=== PATIENT | female | born 1985 | race Caucasian/White ===

== ENCOUNTER 2016-06-01 19:28 | Outpatient (CLI) | payer OTHER ==
[2016-06-01 19:59] VITALS: BP 156/91; PULSE 103; RESP 16; TEMP 97.2
== END 2016-06-01 21:56 | disposition home or self-care (01) ==
LOC: FBPOP 19:28
PROVIDERS: ATTEND Obstetrics & Gynecology
DX: Z53.9 Procedure and treatment not carried out, unspecified reason (principal)
CPT/HCPCS: 59025; 99213

== ENCOUNTER 2016-06-01 22:50 | Inpatient (IN) | payer OTHER ==
[~2016-06-01 22:50] MED LIST: BUPIVACAINE (PF) 0.25% 30 ML VIAL ONE; SODIUM CHLORIDE 0.9% 100 ML BAG ONE; fentaNYL (PF) 50 MCG/ML 5 ML AMP ONE
[2016-06-01 23:32] VITALS: BMI 26.2
[2016-06-02] MEDS ORDERED: TERBUTALINE 1 MG/ML VIAL SQ PRN (00:06)
[2016-06-02] MEDS ORDERED: BUTORPHANOL 1 MG/ML 1 ML VIAL IV PRN (00:06)
[2016-06-02] MEDS ORDERED: CARBOPROST TROMETHAMINE 250 MCG/ML 1 ML AMP IM PRN (00:06)
[2016-06-02] MEDS ORDERED: LIDOCAINE 1% (PF) 10 MG/ML (30 ML SDV) SQ PRN (00:06)
[2016-06-02] MEDS ORDERED: OXYTOCIN 10 UNIT/ML 1 ML VIAL IM PRN (00:06)
[2016-06-02] MEDS ORDERED: METHYLERGONOVINE 0.2 MG/ML 1 ML AMP IM PRN (00:06)
[2016-06-02 00:19] LABS: Basophils % (A) 0 %; CH 30.9; CHCM 34.1; Eosinophils # (A) 0.1 k/uL (0-0.7); Eosinophils % (A) 0 %; HCT 41.7 % (34.0-46.0); HDW 2.52; Luc # (Auto) 0.17; Luc % (Auto) 1; Lymphocytes # (A) 1.8 k/uL (1.0-4.8); Lymphocytes % (A) 10 %; MCH 30.4 pg (25.0-35.0); MCHC 33.5 g/dL (31.0-37.0); MCV 90.8 fL (80.0-100.0); Mean Platelet Volume 8.5; Monocytes # (A) 0.6 k/uL (0-1.0); Monocytes % (A) 4 %; Neutrophils # (A) 15.6 k/uL (1.3-7.7); Neutrophils % (A) 85 %; RBC 4.59 m/uL (3.80-5.40); RDW 13.5 % (11.5-15.5); WBC 18.3 k/uL (3.8-10.6); WBC (Perox) 18.45
[2016-06-02] MEDS: LACTATED RINGERS 1,000 ML IV SCH ×2 (00:19→00:41)
--- NOTE | 2016-06-02 05:24 | P.HPOB ---
History of Present Illness H&P Date: 06/02/16 Chief Complaint: 38+ weeks, active labor The patient is a 30-year-old 1 para 0 admitted at 38+ weeks as established by last menstrual period and confirmed by second trimester ultrasound. She is admitted in early active labor with all signs reassuring. Her has been uncomplicated and group B strep status is negative. Obstetrical history 1 para 0 with current statistics listed above. EDC of 06/11/2016 was established by last menstrual period and confirmed by 19 week ultrasound. Laboratory workup demonstrates a blood type of A+ with a negative antibody screen. Rubella status is immune. All other laboratory workup was within normal limits. One hour Glucola was normal and group B strep status is negative. Gynecologic history is unremarkable with no history of any infections to include STDs. Review of Systems Review of systems is confined to history of present illness. Past Medical History Past Medical History: No Reported History History of Any Multi-Drug Resistant Organisms: None Reported Additional Past Surgical History / Comment(s): [place] Teeth Past Anesthesia/Blood Transfusion Reactions: No Reported Reaction Past Psychological History: No Psychological Hx Reported Smoking Status: Never smoker Past Alcohol Use History: None Reported Past Drug Use History: None Reported - Past Family History Father Family Medical History: Hypertension Medications and Allergies Home Medications Medication Instructions Recorded Confirmed Type Fez-Rltf-Kikla Acid 1 cap PO DAILY 06/01/16 06/01/16 History [-U Capsule (formulary)] Allergies Allergy/AdvReac Type Severity Reaction Status Date / Time No Known Allergies Allergy Verified 06/01/16 23:22 Exam - Vital Signs Vital signs: Vital Signs Temp Pulse Resp BP 06/01/16 23:22 97.2 F L 114 H 18 161/92 Intake and Output 06/01/16 06/01/16 06/02/16 14:59 22:59 06:59 Intake Total 1000 Balance 1000 Intake: Intake, IV Titration 1000 Amount Lactated Ringers 1,000 ml 1000 @ 125 mls/hr IV .Q8H VIPIN Rx#:[id number] Other: # Voids 1 Weight 75.75 kg Patient Weight 06/02/16 06:59 Weight 75.75 kg In general, this is a well-developed, well-nourished white female in discomfort as she is in active labor and approaching the second stage. Her heart has a regular rhythm and rate without murmur. Her lungs are clear to auscultation bilaterally in all morales. Her abdomen is gravid, nondistended, has normal active bowel sounds, is soft, nontender, and without any palpable masses aside from the uterine fundus. Her extremities without any cyanosis, clubbing, or edema and are nontender to palpation bilaterally. Digital cervical examination at this time demonstrates her surgery completely dilated with the vertex in presentation at 0 to -1 station. Rupture of membranes of the remaining amniotic membrane in front of the head demonstrates moderately meconium-stained fluid. Results Result Diagrams: 06/02/16 00:08 Abnormal Lab Results - Last 24 Hours (Table) 06/02/16 Range/Units 00:08 WBC 18.3 H (3.8-10.6) k/uL Neutrophils # 15.6 H (1.3-7.7) k/uL Assessment and Plan (1) Active labor at term Status: Acute Plan: The patient will continue to have close maternal and surveillance. Expectant management will be practiced and anticipate normal vaginal delivery in the near future. An epidural catheter has been placed for analgesia. We will have him the nurse first line production supervisor at standby for meconium should it become necessary.
[2016-06-02] MEDS ORDERED: BENZOCAINE/MENTHOL SPRAY 1 GM/SPRAY AEROSOL TOPICAL PRN (06:34)
[2016-06-02] MEDS ORDERED: Acetaminophen-Codeine 300-30mg TAB PO PRN ×2 (06:34)
[2016-06-02] MEDS ORDERED: diphenhydrAMINE 50 MG CAP PO PRN (06:34)
[2016-06-02] MEDS ORDERED: LANOLIN CREAM 5 GM TUBE TOPICAL PRN (06:34)
[2016-06-02] MEDS ORDERED: WITCH HAZEL 1 EACH MED..PAD TOPICAL PRN (06:34)
[2016-06-02] MEDS ORDERED: diphenhydrAMINE 50 MG/ML 1 ML VIAL IVP PRN ×2 (06:34)
[2016-06-02] MEDS ORDERED: ACETAMINOPHEN TAB 325 MG TAB PO PRN (06:34)
[2016-06-02] MEDS ORDERED: HYDROCORTISONE 2.5% RECTAL CREAM 30 GM TUBE RECTAL PRN (06:34)
[2016-06-02] MEDS ORDERED: ZOLPIDEM 5 MG TAB PO PRN (06:34)
[2016-06-02] MEDS ORDERED: SIMETHICONE 80 MG CHEWABLE PO PRN (06:34)
[2016-06-02] MEDS ORDERED: diphenhydrAMINE 25 MG CAP PO PRN (06:34)
--- NOTE | 2016-06-02 06:40 | P.PROBDLV ---
Vaginal Delivery Note - . Vaginal Delivery Note: The patient is a 30-year-old 1 para 0 admitted at 38+ weeks by good dating parameters. She is admitted in early active labor with all signs reassuring. Her has been entirely uncomplicated and group B strep status is negative. On labor and delivery, she made progress through the latent phase of labor and had an epidural catheter placed for analgesia. She then progressed very steadily through the active phase of labor to anterior lip at which time artificial rupture of membranes is carried out demonstrating moderately meconium-stained fluid. She pushed over the course of approximately 50 minutes to a normal spontaneous vaginal delivery of a viable 7 lbs. 9 oz. baby boy with Apgars of 9 at 1 minute and 9 at 5 minutes. Thorough bulb suctioning was done on the perineum. The was immediately vigorous following delivery and the nurse manager erp was dismissed. The placenta delivered spontaneously, intact, and grossly normal though it was bilobar with the cord insertion at the junction of the 2 lobes near the margin of the placenta. The cord itself was grossly normal and 3 vessels in nature. A second -degree midline episiotomy had been cut for delivery and was noted to have not extended though the skin extended to near the anal verge. It was closed in standard fashion using 3-0 chromic catgut without difficulty under local 1% lidocaine block. Estimated blood loss for the case is approximately 350 mL. There were no complications. All sponge, instrument, and needle counts were correct. Both mother and are resting comfortably in recovery.
[2016-06-02] MEDS ORDERED: DIPH,PERTUS(ACELL)TETVAC-LF 0.5 ML VIAL IM ONE (07:03)
[2016-06-02] MEDS: OXYTOCIN 30 UNITS/500 ML NS 30 UNIT in SALINE 1 500ML.BAG IV SCH ×2 (10:59→11:02)
[2016-06-02 12:15] VITALS: RESP 16
[2016-06-02] MEDS: SENNOSIDES-DOCUSATE SODIUM 1 EACH TAB PO SCH ×2 (12:42→20:01)
[2016-06-02] MEDS: IBUPROFEN 600 MG TAB PO PRN ×2 (12:42→20:53)
--- NOTE | 2016-06-03 07:54 | P.DS ---
Providers Date of admission: 06/01/16 23:02 Expected date of discharge: 06/03/16 Attending physician: Tremayne Bell Primary care physician: Padmini Redd [facility] Course: This is a 30-year-old white female 1 para 0 EDC 06/11/2016 at 38-4/7 weeks' gestation. Patient presented to labor and delivery with strong regular uterine contractions, in early labor. was essentially unremarkable, group B strep cultures negative, rubella status immune. Artificial amniorrhexis revealed thick meconium-stained fluid. Please see dictated history and physical for details. Patient went on to deliver a liveborn male infant with scores of 9 and 9 at one and 5 minutes respectively. There was an estimated blood loss recorded of 350 mL's. weighed 3440 g or 7 lbs. 9 oz. There was a small second- degree laceration that was easily repaired. Please see dictated delivery note for details. This morning the patient is doing well. She is voiding, ambulating and passing flatus without difficulty. Vital signs are stable and she is afebrile. Fundus is firm and in the midline, symmetric and 18 week size. circumcision has been performed. Breast-feeding is going well. Patient is being discharged home in very good condition. She will follow-up with me in the office in 6 weeks. I reminded her no intercourse, tampons or douching. She will use gjjf-ibm-ikxizbm ibuprofen products as needed for pain. I've asked her to call with any fevers shakes or chills, foul smelling or copious lochia, with the passage of large blood clots, with any pain not alleviated by frms-huo-ldmbbhn products, or indeed with any concerns. Patient Condition at Discharge: Good Plan - Discharge Summary Discharge Medication List Qqw-Pyqe-Ztgvt Acid [-U Capsule (formulary)] 1 cap PO DAILY 03/19 [History] Follow up Appointment(s)/Referral(s): Padmini Redd MD [Primary Care Provider] - 6 Weeks Discharge Disposition: HOME SELF-CARE
[2016-06-03] MEDS: IBUPROFEN 600 MG TAB PO PRN (08:14)
[2016-06-03] MEDS: SENNOSIDES-DOCUSATE SODIUM 1 EACH TAB PO SCH ×2 (08:15→21:08)
[2016-06-04 09:32] VITALS: TEMP 97.6
[2016-06-04 12:44] VITALS: BP 130/77; PULSE 74
[2016-06-04] MEDS: SENNOSIDES-DOCUSATE SODIUM 1 EACH TAB PO SCH (14:09)
== END 2016-06-04 13:35 | disposition home or self-care (01) | DRG 775 ==
LOC: FBPOP 22:50 → OBSVTOIN 23:02 → 4FBP 23:02
PROVIDERS: ADMIT Obstetrics & Gynecology; ATTEND Obstetrics & Gynecology
PROC: 10E0XZZ Delivery of Products of Conception, External Approach (ICD-10-PCS; principal; 2016-06-02)
PROC: 00HU33Z Insertion of Infusion Device into Spinal Canal, Percutaneous Approach (ICD-10-PCS; 2016-06-02)
PROC: 3E0R3CZ (ICD-10-PCS; 2016-06-02)
PROC: 3E0234Z Introduction of Serum, Toxoid and Vaccine into Muscle, Percutaneous Approach (ICD-10-PCS; 2016-06-02)
DX: O77.0 Labor and delivery complicated by meconium in amniotic fluid (principal); O70.1 Second degree perineal laceration during delivery; Z37.0 Single live birth; Z23 Encounter for immunization; Z3A.38 38 weeks gestation of pregnancy; Z79.899 Other long term (current) drug therapy
CPT/HCPCS: 59025; 85025; 88307; 90471; 90715; 99213

== ENCOUNTER 2022-08-11 04:59 | Outpatient (CLI) | payer OTHER ==
[2022-08-11 06:31] VITALS: BP 132/80; PULSE 88; RESP 16; TEMP 96.9
--- NOTE | 2022-08-11 15:32 | P.MSEPDOC ---
Presenting Problems - Arrival Data Date of Arrival on Unit: 08/11/22 Time of Arrival on Unit: 04:59 Mode of Transport: Ambulatory - Complaint OB-Reason for Admission/Chief Complaint: Possible Onset of Labor Comment: contractions 10 minuts apart Medical History - Information : 3 Para: 2 Term: 2 : 0 Abortions: Spontaneous or Elective: 0 Number of Living Children: 2 - Gestational Age Gestational Age by TERA (wks/days): 40 Weeks and 0 Days Review of Systems - Review of Systems Constitutional: No problems Breast: No problems ENT: No problems Cardiovascular: No problems Respiratory: No problems Gastrointestinal: No problems Genitourinary: No problems Musculoskeletal: No problems Neurological: No problems Skin: No problems Vital Signs - Temperature Temperature: 96.9 F Temperature Source: Oral - Pulse Right Brachial Pulse Rate: 88 Pulse Assessment Method: Automatic Cuff - Respirations Respiratory Rate: 16 Oxygen Delivery Method: Room Air O2 Sat by Pulse Oximetry: 100 - Blood Pressure Right Arm Blood Pressure: 132/80 Blood Pressure Mean: 97 Blood Pressure Source: Automatic Cuff Medical Screen Scoring - Cervical Exam Dilation (cm): 2.5 Effacement (%): 70 Station: -2 Membranes: Intact - Uterine Contractions Frequency From (mins): 7 Frequency To (mins): 11 Duration From (seconds): 50 Duration To (seconds): 60 Intensity: Mild Resting: Soft to palpation - Assessment - Baby A Baseline FHR: 135 Heart Rate - NICHD Category: Category I (Normal) NST: Reactive Physician Notification - Physician Notified Physician Notified Date: 08/11/22 Physician Notified Time: 06:14 Physician: Kaylene Rahman Order Received: Yes (discharge) - Notification Comment Comment: Dr. Rahman called with report on patient. that presents for contractions 7-11 minutes apart. Patients cervix remains unchanged after 1 hour at. 2.5/70/-2. Reactive NST. Pain 1-2/10 appears. comfortable. Patient to be discharged home. Maternal Triage Index - Maternal Triage Index Presenting for scheduled procedure w/no complaint: No - Stat/Priority 1 Stat Priority 1: No - Urgent/Priority 2 Urgent Priority 2: No - Prompt/Priority 3 Prompt Priority 3: No - Non-Urgent/Priority 4 Non-Urgent Priority 4: Yes Criteria Met for Priority 4: 40 0/7 cx Disposition - Disposition OB Disposition: Discharge to home Discharge Date: 08/11/22 Discharge Time: 06:17 I agree with the RN Medical Screening Exam: Yes Case reviewed; plan agreed upon as documented in EMR&OBIX.: Yes Diagnosis: rule out labor
== END 2022-08-11 06:17 | disposition home or self-care (01) ==
LOC: FBPOP 04:59
PROVIDERS: ATTEND Obstetrics & Gynecology
DX: O47.1 False labor at or after 37 completed weeks of gestation (principal); Z3A.40 40 weeks gestation of pregnancy
CPT/HCPCS: 59025; 99213

== ENCOUNTER 2022-08-11 12:49 | Inpatient (IN) | payer OTHER ==
[2022-08-11] MEDS ORDERED: METHYLERGONOVINE 0.2 MG/ML 1 ML AMP IM PRN (14:40)
[2022-08-11] MEDS ORDERED: LIDOCAINE 0.5% (PF) 5 MG/ML (50 ML SDV) SQ PRN (14:40)
[2022-08-11] MEDS ORDERED: OXYTOCIN 10 UNIT/ML 1 ML VIAL IM PRN (14:40)
[2022-08-11] MEDS ORDERED: TRANEXAMIC ACID IN NACL,ISO-OS 1,000 MG in EMPTY BAG 1 BAG IV PRN (14:40)
[2022-08-11] MEDS ORDERED: TERBUTALINE 1 MG/ML VIAL SQ PRN (14:40)
[2022-08-11] MEDS ORDERED: miSOPROStoL 200 MCG TAB PO PRN (14:40)
[2022-08-11] MEDS ORDERED: CARBOPROST TROMETHAMINE 250 MCG/ML 1 ML AMP IM PRN (14:40)
[2022-08-11] MEDS ORDERED: OXYTOCIN 30 UNITS/500 ML NS 30 UNIT in SALINE 1 500ML.BAG IV SCH ×2 (14:45→18:15)
[2022-08-11] MEDS ORDERED: LACTATED RINGERS 1,000 ML IV SCH (14:45)
[2022-08-11 14:49] LABS: Basophils % (A) 0 %; Eosinophils # (A) 0.1 k/uL (0-0.7); Eosinophils % (A) 1 %; HCT 45.3 % (34.0-46.0); HGB 14.7 gm/dL (11.4-16.0); Lymphocytes # (A) 2.9 k/uL (1.0-4.8); Lymphocytes % (A) 20 %; MCH 29.9 pg (25.0-35.0); MCHC 32.4 g/dL (31.0-37.0); MCV 92.3 fL (80.0-100.0); Mean Platelet Volume 10.1; Monocytes # (A) 0.8 k/uL (0-1.0); Monocytes % (A) 6 %; Neutrophils # (A) 10.5 k/uL (1.3-7.7); Neutrophils % (A) 72 %; Platelet Count 268 k/uL (150-450); RDW 13.7 % (11.5-15.5); WBC 14.7 k/uL (3.8-10.6)
[2022-08-11] MEDS ORDERED: fentaNYL (PF) 50 MCG/ML 5 ML AMP ONE (15:00)
[2022-08-11] MEDS ORDERED: SODIUM CHLORIDE 0.9% 100 ML BAG ONE (15:00)
[2022-08-11] MEDS ORDERED: ROPIVACAINE 5 MG/ML 20 ML AMPULE ONE (15:00)
--- NOTE | 2022-08-11 15:26 | P.HPOB ---
History of Present Illness H&P Date: 08/11/22 Chief Complaint: Labor at term This is a 36-year-old 3 para 2001 woman with an estimated due date of 08/11/2022 based on LMP consistent with first trimester ultrasound. She presents with increasing contractions throughout the day. Upon initial presentation to labor and delivery triage she was 2 cm dilated she did progress to 4 cm dilated during observation and was therefore admitted. Her has been entirely uncomplicated. She denies leakage of fluids or vaginal bleeding. Laboratory data: Blood type A+, antibody screen negative, rubella immune, VDRL nonreactive, HIV negative, hepatitis B surface antigen negative, glucose tolerance testing within normal limits, gonorrhea and clinic cultures negative, group B strep negative. Past obstetric history: She is a 3 para 2001 with history of 2 term term vaginal deliveries in 2017 and 2018, uncomplicated. Review of Systems All systems: negative Past Medical History Past Medical History: No Reported History History of Any Multi-Drug Resistant Organisms: None Reported Additional Past Surgical History / Comment(s): [place] Teeth Past Anesthesia/Blood Transfusion Reactions: No Reported Reaction Smoking Status: Never smoker - Past Family History Father Family Medical History: Hypertension Medications and Allergies Home Medications Medication Instructions Recorded Confirmed Type Hws-Xvff-Ornqf Acid 1 cap PO DAILY 06/01/16 08/11/22 History [-U Capsule (formulary)] Allergies Allergy/AdvReac Type Severity Reaction Status Date / Time No Known Allergies Allergy Verified 08/11/22 05:35 Exam Vital Signs Temp Pulse Resp BP Pulse Ox 08/11/22 14:10 97.1 F L 90 18 118/70 99 Intake and Output 08/11/22 08/11/22 08/11/22 06:59 14:59 22:59 Other: Weight 77.111 kg This is a visibly gravid female who is now resting comfortably with an epidural anesthetic. On pelvic examination the cervix is 9 cm dilated, 100% effaced and the vertex in the 0 station. Artificial rupture membranes is undertaken and thinly meconium-stained fluid is noted. heart tones are category 1 and she is bal every 2-5 minutes spontaneously. Results Result Diagrams: 08/11/22 14:40 Abnormal Lab Results - Last 24 Hours (Table) 08/11/22 Range/Units 14:40 WBC 14.7 H (3.8-10.6) k/uL Neutrophils # 10.5 H (1.3-7.7) k/uL Assessment and Plan (1) Active labor at term Current Visit: No Status: Acute Code(s): LEQ8410 - SNOMED Code(s): 65771071 (2) Thin meconium stained amniotic fluid Current Visit: No Status: Acute Code(s): P96.83 - MECONIUM STAINING SNOMED Code(s): 284414899 Plan: 36-year-old 3 para 2001 woman admitted in spontaneous active labor at term. Group B strep negative and Rh+. status currently reassuring by external monitoring. Anticipate normal spontaneous vaginal delivery.
[2022-08-11] MEDS ORDERED: LANOLIN CREAM 5 GM TUBE TOPICAL PRN (18:11)
[2022-08-11] MEDS ORDERED: SIMETHICONE 80 MG CHEWABLE PO PRN (18:11)
[2022-08-11] MEDS ORDERED: diphenhydrAMINE 25 MG CAP PO PRN (18:11)
[2022-08-11] MEDS ORDERED: ACETAMINOPHEN TAB 325 MG TAB PO PRN (18:11)
[2022-08-11] MEDS ORDERED: BENZOCAINE/MENTHOL SPRAY 1 GM/SPRAY AEROSOL TOPICAL PRN (18:11)
[2022-08-11] MEDS ORDERED: diphenhydrAMINE 50 MG CAP PO PRN (18:11)
[2022-08-11] MEDS ORDERED: HYDROCORTISONE 2.5% RECTAL CREAM 30 GM TUBE RECTAL PRN (18:11)
[2022-08-11] MEDS ORDERED: ZOLPIDEM 5 MG TAB PO PRN (18:11)
[2022-08-11] MEDS ORDERED: diphenhydrAMINE 50 MG/ML 1 ML VIAL IVP PRN ×2 (18:11)
--- NOTE | 2022-08-11 18:11 | P.PROBDLV ---
Vaginal Delivery Note - . Vaginal Delivery Note: Findings: Female in the vertex left occiput anterior position with a tight nuchal cord 1. Intact, three-vessel cord placenta with marginal cord insertion and accessory lobe with vasa previa. Meconium staining of the fluid and infant. Apgars 9 at 1 minute and 9 at 5 minutes weighing 7 lbs. 5 oz., 3315 g. EBL 150 mL's. Delivery summary: This is a 36-year-old 3 para 2001 woman who presented at 40-0/7 weeks gestation in spontaneous active labor. She dilated from 2-4 cm while in triage. She was admitted and received an epidural anesthetic. She rapidly progressed to 9 cm dilated at which time artificial rupture of membranes is undertaken and meconium-stained fluid was noted. heart tones were category 1 throughout her first and second stage of labor. She reached complete cervical dilation and commenced pushing with excellent maternal effort. She rapidly pushed to at which time she was repositioned, prepped and draped in the modified [place] position. With additional maternal effort 1 the head did deliver. There is a very tight nuchal cord that was unable to be reduced. The rest the then delivered onto the field and the cord was reduced. The nose and mouth were bulb suctioned. The infant was placed on the maternal abdomen and the cord was clamped and cut. Apgars were 9 at 1 minute and 9 at 5 minutes. After approximately 10 minute third stage of labor an intact, three-vessel cord placenta was delivered. The perineum cervix and vagina were inspected and no lacerations were noted. The uterus was massaged and noted to be firm at the level of the umbilicus. The patient received Pitocin in the third stage of labor. EBL was approximately 150 mL's. Inspection of the placenta reveals an accessory lobe with marginal insertion of the cord. There are vessels traversing the membranes to the accessory lobe. Placenta sent to the pathologist for further notation. Both mother and infant were doing well post delivery in the room. Counts are correct.
[2022-08-11] MEDS: SENNOSIDES-DOCUSATE SODIUM 1 EACH TAB PO SCH (21:07)
[2022-08-12 06:53] LABS: Basophils % (A) 0 %; Eosinophils # (A) 0.1 k/uL (0-0.7); Eosinophils % (A) 1 %; HCT 36.4 % (34.0-46.0); HGB 12.1 gm/dL (11.4-16.0); Lymphocytes # (A) 2.5 k/uL (1.0-4.8); Lymphocytes % (A) 20 %; MCHC 33.1 g/dL (31.0-37.0); MCV 90.5 fL (80.0-100.0); Mean Platelet Volume 10.1; Monocytes # (A) 0.7 k/uL (0-1.0); Monocytes % (A) 6 %; Neutrophils # (A) 9.1 k/uL (1.3-7.7); Neutrophils % (A) 72 %; Platelet Count 189 k/uL (150-450); RBC 4.02 m/uL (3.80-5.40); RDW 13.8 % (11.5-15.5); WBC 12.7 k/uL (3.8-10.6)
[2022-08-12] MEDS: IBUPROFEN 600 MG TAB PO PRN ×2 (08:21→18:20)
[2022-08-12] MEDS: SENNOSIDES-DOCUSATE SODIUM 1 EACH TAB PO SCH (08:22)
[2022-08-12 08:31] VITALS: RESP 16
--- NOTE | 2022-08-12 11:16 | P.DS ---
Providers Date of admission: 08/11/22 14:19 Expected date of discharge: 08/12/22 Attending physician: Tremayne Bell Primary care physician: Stated None - Discharge Diagnosis(es) (1) Normal spontaneous vaginal delivery Current Visit: No Status: Acute Hospital Course: The patient is a 36-year-old 3 para 2 scissors or 2 admitted at 40-0/7 weeks by good dating parameters. She is admitted in active labor with all signs reassuring. Her was entirely uncomplicated and group B strep status is negative. On labor and delivery, she made rapid progress through the active phase of labor to 9 cm at which time she had artificial rupture of membranes carried out demonstrating meconium-stained fluid. She progressed quickly to complete and pushed to a normal spontaneous vaginal delivery of a viable 7 lbs. 5 oz. baby girl with Apgars of 9 at 1 minute and 9 at 5 minutes. Her course was unremarkable with vital signs remaining stable and her temperature was afebrile throughout. She was deemed stable for discharge on day 1 was discharged home to follow-up in the office in 6 weeks' time routinely. Discharge instructions included calling for any significantly increased bleeding or foul-smelling lochia, significantly increased fever abdominal pain, perineal complaints, breast complaints, or anything also concerned her. She is additionally instructed to have nothing in the vagina for at least 6 weeks time to include intercourse. She understood all of her instructions and agrees to follow up as noted above. Discharge medications included only [id number]-gnbsflr analgesic pain medications as well as continued vitamins as she has opted to breast-feed. Maternal blood type is A+ and rubella status is immune. Procedures: #1. Artificial rupture of membranes #2. Normal spontaneous vaginal delivery Patient Condition at Discharge: Stable Plan - Discharge Summary Discharge Rx Participant: No New Discharge Prescriptions: No Action Ckz-Jlvj-Ijfrv Acid [-U Capsule (formulary)] 1 cap PO DAILY Discharge Medication List Tlj-Cssl-Kjkxc Acid [-U Capsule (formulary)] 1 cap PO DAILY 06/01/16 [History] Follow up Appointment(s)/Referral(s): Tremayne Bell MD [STAFF PHYSICIAN] - 1 Week Discharge Disposition: HOME SELF-CARE
[2022-08-12 16:36] VITALS: BP 133/89; PULSE 90; TEMP 98.2
== END 2022-08-12 19:18 | disposition home or self-care (01) | DRG 807 ==
LOC: FBPOP 12:49 → 4FBP 14:19
PROVIDERS: ADMIT Obstetrics & Gynecology; ATTEND Obstetrics & Gynecology
PROC: 10E0XZZ Delivery of Products of Conception, External Approach (ICD-10-PCS; principal; 2022-08-11)
PROC: 10907ZC Drainage of Amniotic Fluid, Therapeutic from Products of Conception, Via Natural or Artificial Opening (ICD-10-PCS; 2022-08-11)
DX: O69.1XX0 Labor and delivery complicated by cord around neck, with compression, not applicable or unspecified (principal); Z37.0 Single live birth; O69.4XX0 Labor and delivery complicated by vasa previa, not applicable or unspecified; O43.193 Other malformation of placenta, third trimester; O62.3 Precipitate labor; O77.0 Labor and delivery complicated by meconium in amniotic fluid; Z3A.40 40 weeks gestation of pregnancy
CPT/HCPCS: 59025; 85025; 86850; 86900; 86901; 99213